=== PATIENT | male | born 1970 | race Hispanic/Latino ===

== ENCOUNTER 2020-06-20 11:21 | Emergency (ER) | payer SELFPAY ==
[~2020-06-20] VITALS: Ht 167.6 cm; Wt 108.9 kg
[2020-06-20 12:27] LABS: BASOPHILS % 0.6 % (0.0-1.0); EOSINOPHILS % 0.2 % (0.0-6.0); HEMATOCRIT 39.2 % (38.2-49.6); HEMOGLOBIN 13.4 g/dL (14.0-18.0); LYMPHOCYTES # (AUTO) 1.4 (1.0-3.2); LYMPHOCYTES % 20.9 % (18.0-39.1); MEAN CORPUSCULAR HEMOGLOBIN 32.1 pg (28-32); MEAN CORPUSCULAR HGB CONC 34.2 g/dL (31-35); MEAN CORPUSCULAR VOLUME 93.8 fL (81-99); MONOCYTES # (AUTO) 0.5 (0.2-0.8); MONOCYTES % 7.1 % (4.4-11.3); NEUTROPHILS # (AUTO) 4.7 (2.1-6.9); NEUTROPHILS % 70.9 % (38.7-80.0); PLATELET COUNT 160 x10e3/uL (140-360); RED BLOOD COUNT 4.18 x10e6/uL (4.3-5.7); RED CELL DISTRIBUTION WIDTH 11.1 % (11.7-14.4)
[2020-06-20 12:51] LABS: ALANINE AMINOTRANSFERASE 29 IU/L (0-55); ALBUMIN 3.2 g/dL (3.5-5.0); ALBUMIN/GLOBULIN RATIO 0.9 (0.8-2.0); ALKALINE PHOSPHATASE 86 IU/L (40-150); ANION GAP 11.6 mmol/L (8-16); BLOOD UREA NITROGEN 12 mg/dL (7-26); BUN/CREATININE RATIO 13 (6-25); CALCIUM 7.8 mg/dL (8.4-10.2); CARBON DIOXIDE 26 mmol/L (22-29); CHLORIDE 103 mmol/L (98-107); CREATINE KINASE 446 IU/L (30-200); CREATININE, SERUM 0.95 mg/dL (0.72-1.25); EST GLOMERULAR FILTRATION RATE > 60 ML/MIN (60-); GLUCOSE 106 mg/dL (74-118); POTASSIUM 3.6 mmol/L (3.5-5.1); SODIUM 137 mmol/L (136-145)
[2020-06-20] MEDS ORDERED: SODIUM CHLORIDE 0.9% 50ML 50 ML ONE (13:12)
[2020-06-20] MEDS ORDERED: IOPAMIDOL 370 MG/ML 200 ML INFUS..BTL INJ ONE (13:12)
[2020-06-20] MEDS ORDERED: LEVETIRACETAM 500MG/5ML VIAL 3,000 MG in SODIUM CHLORIDE 0.9% 100 ML 100 ML IV SCH (15:15)
[2020-06-20] MEDS ORDERED: LEVETIRACETAM 500MG/5ML VIAL 3,000 MG in SODIUM CHLORIDE 0.9% 100 ML 100 ML IV ONE (15:30)
== END 2020-06-20 16:00 | disposition other institution (70) ==
LOC: ER 11:25
DX: U07.1 COVID-19 (principal); G40.89 Other seizures; R50.9 Fever, unspecified; R05 Cough
CPT/HCPCS: 36415; 70450; 71045; 71260; 80053; 82550; 82553; 84484; 85025; 93005; 99284; J1953; Q9967; U0002